=== PATIENT | female | born 1995 | race Hispanic/Latino ===

== ENCOUNTER 2017-09-22 17:13 | Emergency (ER) | payer SELFPAY ==
[2017-09-22 17:26] VITALS: TEMP 98
[2017-09-22] MEDS ORDERED: diaZEpam 10 mg/2 ml Inj IVP ONE (18:07)
[2017-09-22] MEDS ORDERED: Sodium Chloride 0.9% 1,000 ML IV STA (18:07)
--- NOTE | 2017-09-22 18:11 | ED PDOC ---
Upper Extremity Pain/Injury Chief Complaint (Provider): "my arm is spasming" History Per: Patient History/Exam Limitations: no limitations Onset/Duration Of Symptoms: Hrs Current Symptoms Are (Timing): Still Present Quality: Dull Severity: Mild Pain Scale Rating Of: 2 Exacerbating Factor(s): Other (rest ) Additional Complaint(s): 22 y/o female, with an unremarkable PMHx, presents complaining of right arm spasms since approx 2pm today. Pt denies any inciting event, and the arm spasm started gradually and escalated to its current severity within an hour while she was at work. This is her 1st episode. Reports feeling mild numbness and tingling down her right arm as well as some muscle soreness. The movement is alleviated by stressing her right arm and exacerbated once she relaxes. Reports she drank a pitcher of beer last night and slept in a normal position. Was asymptomatic this morning. Denies any hx of seizure disorder or illicit drug abuse, new onset life stressors. Denies any new onset headaches, changes in vision, CP/SOB/palpitations, N/V/D/C, numbness/tingling in other parts of her body. <Beau Jones - Last Filed: 09/22/17 19:01> <Gilmar Lombardi - Last Filed: 09/22/17 21:13> Time Seen by Provider: 09/22/17 17:36 Chief Complaint (Nursing): Upper Extremity Problem/Injury Supervising Attending Note - Supervising Attending Note The Documented history was done by the: Physician Concrete Block Maker The documented physical exam was done by the: Physician Concrete Block Maker The documented procedures were done by the: Physician Concrete Block Maker - Attestation: I have personally seen and examined this patient.: Yes I have fully participated in the care of the patient.: Yes I have reviewed all pertinent clinical information: Yes - Notes: Notes:: Muscle spasms <Gilmar Lombardi - Last Filed: 09/22/17 21:13> Past Medical History Reviewed: Historical Data, Nursing Documentation, Vital Signs Vital Signs: Last Vital Signs Temp 98.0 F 09/22/17 17:23 Pulse 88 09/22/17 17:23 Resp 16 09/22/17 17:23 BP 147/85 09/22/17 17:23 Pulse Ox 97 09/22/17 17:23 - Medical History PMH: No Chronic Diseases - Family History Family History: States: No Known Family Hx - Immunization History Hx Tetanus Toxoid Vaccination: No Hx Influenza Vaccination: No Hx Pneumococcal Vaccination: No <Beau Jones - Last Filed: 09/22/17 19:01> Vital Signs: Last Vital Signs Temp 98.0 F 09/22/17 17:23 Pulse 86 09/22/17 19:59 Resp 14 09/22/17 19:59 BP 121/69 09/22/17 19:59 Pulse Ox 100 09/22/17 19:59 <Gilmar Lombardi - Last Filed: 09/22/17 21:13> - Home Medications Home Medications: Ambulatory Orders Medication Instructions Recorded Diazepam [Valium] 2 mg PO BID PRN #6 tab 09/22/17 Ibuprofen [Motrin] 600 mg PO TID 7 Days tab 09/22/17 - Allergies Allergies/Adverse Reactions: Allergies Allergy/AdvReac Type Severity Reaction Status Date / Time No Known Allergies Allergy Verified 09/22/17 17:23 Review of Systems ROS Statement: Except As Marked, All Systems Reviewed And Found Negative <Beau Jones - Last Filed: 09/22/17 19:01> Physical Exam - Reviewed Vital Signs Reviewed: Yes - Physical Exam Appears: Positive for: Non-toxic, No Acute Distress Head Exam: Positive for: ATRAUMATIC Skin: Positive for: Warm, Dry Eye Exam: Positive for: EOMI, PERRL. Negative for: Conjunctival injection, Scleral icterus Neck: Positive for: Painless ROM, Supple Cardiovascular/Chest: Positive for: Regular Rate, Rhythm. Negative for: Murmur , Bradycardia, Tachycardia Respiratory: Positive for: Normal Breath Sounds. Negative for: Crackles, Rales , Rhonchi, Wheezing Pulses-Radial (L): 2+ Pulses-Radial (R): 2+ Extremity: Positive for: Capillary Refill (<2s), Other (right arm with involunaty muscle spasm involving the biceps radialis and triceps. Symptoms resolve upon movement and muscle activation. ). 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 Negative for: Motor/Sensory Deficits <Beau Jones - Last Filed: 09/22/17 19:01> - Physical Exam Cardiovascular/Chest: Positive for: Regular Rate, Rhythm Respiratory: Positive for: Normal Breath Sounds <Gilmar Lombardi - Last Filed: 09/22/17 21:13> - Laboratory Results Result Diagrams: 09/22/17 18:18 09/22/17 18:18 - ECG O2 Sat by Pulse Oximetry: 97 - Progress ED Course And Treament: CBC CPK CMP CT Head IV Diazepam 2.5 mg IV toradol 15mg 1L NS re-evaluate <Beau Jones - Last Filed: 09/22/17 19:01> - Laboratory Results Result Diagrams: 09/22/17 18:18 09/22/17 18:18 Interpretation Of Abn Labs: no acute - ECG Pulse Ox Interpretation: Normal - CT Scan/US ct Other Rad Studies (CT/US): Read By Radiologist Other Rad Interpretation: no acute - Progress ED Course And Treament: 2110: Stable. AAOx3. Pain free. No spasms. Feels back to baseline. Fu with pcp. <Gilmar Lombardi - Last Filed: 09/22/17 21:13> Disposition - Patient ED Disposition Is Patient to be Admitted: Transfer of Care - Disposition Disposition Time: 19:02 Patient Signed Over To: Gilmar Lombardi <Beau Jones - Last Filed: 09/22/17 19:01> - Patient ED Disposition Is Patient to be Admitted: No Counseled Patient/Family Regarding: Studies Performed, Diagnosis, Need For Followup, Rx Given - Disposition Disposition: Routine/Home <Gilmar Lombardi - Last Filed: 09/22/17 21:13> - Clinical Impression Clinical Impression: Muscle spasm - Disposition Referrals: [facility] [Outside] - 09/23/17 Condition: STABLE Additional Instructions: Return if not better in 3 days. Prescriptions: Diazepam [Valium] 2 mg PO BID PRN #6 tab PRN Reason: Muscle Spasm Ibuprofen [Motrin] 600 mg PO TID 7 Days tab Instructions: Muscle Spasm (ED) Forms: [employer] (Malay), [facility] ED School/Work Excuse
[2017-09-22 18:22] LABS: BASO % 0.5 % (0.0-2.0); EOS % 0.5 % (0.0-4.0); HEMOGLOBIN 13.5 g/dL (12.0-16.0); LYMPH # 2.2 K/uL (1.0-4.3); LYMPH % 25.8 % (20.0-40.0); MEAN CORPUSCULAR HEMOGLOBIN 29.4 pg (27.0-31.0); MEAN CORPUSCULAR HGB CONC 33.1 g/dL (33.0-37.0); MEAN PLATELET VOLUME 9.7 fl (7.2-11.7); MONO # 0.6 K/uL (0.0-0.8); MONO % 6.8 % (0.0-10.0); NEUT # 5.6 K/uL (1.8-7.0); NEUT % 66.4 % (50.0-75.0); NRBC % 0.1 % (0.0-0.0); RBC 4.57 Mil/uL (3.80-5.20); RED CELL DISTRIBUTION WIDTH 12.9 % (11.5-14.5); WHITE BLOOD COUNT 8.4 K/uL (4.8-10.8)
[2017-09-22 18:38] LABS: ALB/GLOB RATIO 1.4 (1.0-2.1); ALBUMIN 5.1 g/dL (3.5-5.0); ALT/SGPT 27 U/L (9-52); AST/SGOT 22 U/L (14-36); BLOOD UREA NITROGEN 12 mg/dl (7-17); CALCIUM 9.9 mg/dL (8.4-10.2); GFR AFRICAN-AMERICAN > 60; GFR NON-AFRICAN AMERICAN > 60
[2017-09-22 20:00] VITALS: BP 121/69; PULSE 86; RESP 14; O2SAT 100
--- NOTE | 2017-09-22 20:19 | CT ---
EXAM: CT Head Without Intravenous Contrast EXAM DATE/TIME: 09/22/2017 6:06 PM CLINICAL HISTORY: 22 years old, female; Signs and symptoms; Weakness, extremity; Bilateral; Additional info: Spasms of muscle TECHNIQUE: Axial computed tomography images of the head/brain without intravenous contrast. All CT scans at this facility use one or more dose reduction techniques, viz.: automated exposure control; ma/kV adjustment per patient size (including targeted exams where dose is matched to indication; i.e. head); or iterative reconstruction technique. Coronal and sagittal reformatted images were created and reviewed. COMPARISON: There are no prior studies for comparison. FINDINGS: Brain: Ventricles are normal in size and configuration. There is no midline shift. There are no intra-axial or extra-axial mass lesions or areas of hemorrhage. There are no abnormal fluid collections. Eldridge-white differentiation is maintained. Ventricles: See above. Bones: Cranial vault is intact. Soft tissues: unremarkable Sinuses: There is no acute sinusitis. Ears and mastoids: Middle ears and mastoids are unremarkable Orbits: Orbital contents are unremarkable. IMPRESSION: No acute intracranial abnormality
== END 2017-09-22 21:45 | disposition home or self-care (01) ==
LOC: H.ER 17:13
DX: M62.838 Other muscle spasm (principal); R20.2 Paresthesia of skin
CPT/HCPCS: 70450; 80053; 81025; 82550; 85025; 96360; 99283; J7040